=== PATIENT | male | born 1975 | race Two or more races ===

== ENCOUNTER 2019-12-19 22:29 | Emergency (ER) | payer OTHER ==
[~2019-12-19] VITALS: Ht 175.3 cm; Wt 86.2 kg
--- NOTE | 2019-12-19 22:35 | NUR ---
PATIENT WALKED INTO ER WITH STEADY GAIT A/OX3 C/O LEFT FOREARM PAIN WITH LEFT HAND SWELLING AND PAIN AFTER FALLING OFF ROOF TOP OF AN RV 7HRS [employer]. PATIENT DENIES LOC. ALSO C/O LEFT RIB CAGE PAIN.
--- NOTE | 2019-12-19 22:35 | NUR ---
Dr. Cornejo at bedside for MSE.
[2019-12-19] MEDS ORDERED: MORPHINE SULFATE 4 MG/1 ML DISP.SYRIN ONE (22:45)
[2019-12-19] MEDS ORDERED: MORPHINE SULFATE 2 MG/1 ML DISP.SYRIN ONE (22:45)
[2019-12-19] MEDS ORDERED: MORPHINE SULFATE 4 MG/1 ML DISP.SYRIN IM ONE (22:45)
--- NOTE | 2019-12-19 23:15 | NUR ---
Dr. Cornejo at bedside.
--- NOTE | 2019-12-19 23:32 | NUR ---
Patient discharged to home in stable condition. Written and verbal after care instructions given. Patient verbalizes understanding of instructions. Stressed follow up or return to ER for worsening s/s. Pt ambulated out of the ER with steady gait. All belongings with pt.
[2019-12-19 23:34] VITALS: BP 137/79
== END 2019-12-19 23:32 | disposition home or self-care (01) ==
LOC: ER 22:31
PROC: 2W3DX1Z Immobilization of Left Lower Arm using Splint (ICD-10-PCS; principal; 2019-12-19)
DX: S52.572A Other intraarticular fracture of lower end of left radius, initial encounter for closed fracture (principal); W17.89XA Other fall from one level to another, initial encounter; Y92.89 Other specified places as the place of occurrence of the external cause; S20.212A Contusion of left front wall of thorax, initial encounter; S70.02XA Contusion of left hip, initial encounter; Z86.19 Personal history of other infectious and parasitic diseases; Z87.828 Personal history of other (healed) physical injury and trauma
CPT/HCPCS: 99285; 29125; 71101; 73060; 73080; 73090; 73130; 73502; 76705; 93308; J2270 ×2; A4663

== ENCOUNTER 2019-12-20 15:41 | Emergency (ER) | payer OTHER ==
[~2019-12-20] VITALS: Ht 170.2 cm; Wt 81.6 kg
[2019-12-20 17:24] VITALS: BP 131/70
--- NOTE | 2019-12-20 17:25 | NUR ---
Patient discharged to home in stable condition. Written and verbal after care instructions given. Patient verbalizes understanding of instructions. Stressed follow up or return to ER for worsening s/s.
== END 2019-12-20 17:24 | disposition home or self-care (01) ==
LOC: ER 15:44
DX: S62.102D Fracture of unspecified carpal bone, left wrist, subsequent encounter for fracture with routine healing (principal); X58.XXXD Exposure to other specified factors, subsequent encounter
CPT/HCPCS: A4663